=== PATIENT | female | born 1965 | race Caucasian/White ===

== ENCOUNTER 2023-09-22 19:43 | Inpatient (IN) | payer OTHER, SELFPAY ==
[~2023-09-22 19:43] MED LIST: Iopamidol 300 61% 100 ML VIAL FS ONE
[2023-09-22 21:20] LABS: #Basophils 0.04 10x3/uL (0.0-0.2); #Eosinphils 0.03 10x3/uL (0.0-0.5); #Monocytes 1.05 10x3/uL (0.0-1.1); #Neutrophils 15.81 10x3/uL (1.5-8.4); %Basophils 0.2 % (0.0-2.0); %Eosinophils 0.2 % (0.0-6.0); %Lymphocytes 5.7 % (18.0-47.0); %Monocytes 5.8 % (0.0-10.0); %Neutrophils 87.3 % (40.0-75.0); Hematocrit 46.1 % (34.9-44.5); Hemoglobin 16.5 g/dL (12.0-15.5); Mean Corpuscular HGB CONC 35.8 g/dL (32.0-36.0); Mean Corpuscular Hemoglobin 32.3 pg (27.0-33.0); Mean Corpuscular Volume 90.2 fL (81.6-98.3); Mean Platelet Volume 8.8 fL (7.4-10.4); Platelet Count 257 10x3/uL (150-450); RBC Distribution Width 12.1 % (11.5-14.5); Red Blood Cell (RBC) Count 5.11 10x6/uL (3.90-5.03)
[2023-09-22 21:32] LABS: ALT (SGPT) 11 U/L (8-55); AST (SGOT) 17 U/L (5-34); Albumin 3.5 g/dL (3.5-5.0); Alkaline Phosphatase 78 U/L (40-110); Anion Gap 16 mmol/L (10-20); BUN (Urea Nitrogen) 8 mg/dL (9.8-20.1); Bilirubin, Total 1.1 mg/dL (0.2-1.2); Calc. Creatinine Clearance 0 mL/min (70-130); Calcium 9.7 mg/dL (7.8-10.44); Carbon Dioxide 20 mmol/L (22-29); Chloride 101 mmol/L (98-107); Estimated GFR 68; Globulin 3.9 g/dL (2.4-3.5); Glucose 115 mg/dL (70-105); Lipase 20 U/L (8-78); Protein, Total 7.4 g/dL (6.0-8.3); Sodium 133 mmol/L (136-145)
[2023-09-22] MEDS ORDERED: Ondansetron PF 4 MG/2 ML Vial ONE (21:32)
[2023-09-22] MEDS ORDERED: Morphine 4 MG/ML VIAL ONE (21:32)
[2023-09-22] MEDS ORDERED: Piperacillin/Tazobactam 4.5 GM VIAL ONE (22:14)
[2023-09-22 22:21] LABS: White Blood Cell (WBC) Count 18.1 10x3/uL (3.5-10.5)
[2023-09-22] MEDS ORDERED: Ondansetron PF 4 MG/2 ML Vial IVP PRN (22:29)
[2023-09-22] MEDS ORDERED: Morphine 4 MG/ML VIAL SLOW IVP PRN (22:29)
[2023-09-22] MEDS ORDERED: traMADol HCl 50 MG TAB PO PRN (22:29)
[2023-09-22] MEDS ORDERED: Ondansetron ODT 4 MG TAB PO PRN (22:29)
[2023-09-22 22:58] LABS: Bilirubin Neg (Negative); Blood, Urine Negative (Negative); Clarity Clear (Clear); Glucose, Urine (Dipstick) Normal (Negative); Ketone, Urine Negative (Negative); Leukocyte 100 (Negative); Nitrite Negative (Negative); Protein, Urine (Dipstick) Negative (Neg-Trace); Specific Gravity, Urine 1.005 (1.005-1.030); Urobilinogen Normal mg/dL (Less than 2)
[2023-09-22 23:06] LABS: CAUTI Indications for Culture Pelvic or flank pain; RBC/HPF None Seen HPF (0-3)
[2023-09-22 23:07] LABS: Bacteria/HPF None Seen HPF (None Seen); Squamous Epithelial 0-3 HPF (0-3); Urine Culture Reflex No No
[2023-09-23 02:20] VITALS: BMI 29.1
[2023-09-23] MEDS: Ketorolac Tromethamine 30 MG (1 mL) VIAL IVP SCH ×3 (02:51→15:00)
[2023-09-23] MEDS: Sodium Chloride 0.9% 1,000 ML IV SCH (02:51)
[2023-09-23] MEDS: Scopolamine 1 mg/72 hour Patch TD SCH (02:53)
[2023-09-23] MEDS: Piperacillin/Tazobactam 3.375 GM in Sodium Chloride 0.9% 100 ML IVPB SCH ×2 (05:38→15:00)
[2023-09-23] MEDS ORDERED: Bupivacaine PF 0.5% 30 ML VIAL ONE (08:19)
[2023-09-23] MEDS ORDERED: EPINEPHrine 1 MG/ML VIAL ONE (08:19)
[2023-09-23] MEDS: Acetaminophen 500 MG TAB PO SCH (08:51)
[2023-09-23] MEDS: Famotidine 20 MG TAB PO SCH (08:52)
[2023-09-23] MEDS ORDERED: Fentanyl 250 MCG/5 ML VIAL ONE (09:35)
[2023-09-23] MEDS ORDERED: PROPOFOL 20 ML ONE (09:36)
[2023-09-23] MEDS ORDERED: Ibuprofen 600 MG TAB PO PRN (09:47)
[2023-09-23] MEDS ORDERED: ePHEDrine Sulfate 50 MG/10 ML VIAL ONE (09:57)
[2023-09-23] MEDS ORDERED: Midazolam HCl 2 mg/2 ml Vial ONE (10:01)
[2023-09-23] MEDS ORDERED: Sevoflurane 250 ML INH ANEST BOTTLE ONE (10:06)
[2023-09-23] MEDS ORDERED: Dexamethasone 4 mg/ml Vial ONE (10:24)
[2023-09-23] MEDS ORDERED: Ondansetron PF 4 MG/2 ML Vial ONE (10:24)
[2023-09-23] MEDS ORDERED: Glycopyrrolate 0.2 MG/ML 5 ML SYRINGE ONE (10:24)
[2023-09-23] MEDS ORDERED: Morphine 4 MG/ML VIAL SLOW IVP PRN (10:48)
[2023-09-23] MEDS ORDERED: Ondansetron ODT 4 MG TAB PO PRN (10:55)
[2023-09-23] MEDS: NS 0.9% w/ 20 MEQ KCL 1,000 ML IV SCH (12:00)
[2023-09-23] MEDS: Enoxaparin 40 MG (0.4 mL) SYRINGE SC SCH (21:24)
[2023-09-24] MEDS ORDERED: Ibuprofen 200 MG TAB PO PRN (06:06)
[2023-09-24 08:44] VITALS: BP 94/52; TEMP 98.7
[2023-09-24] MEDS: Amoxicillin/Potassium Clav 500 MG TAB PO SCH (09:19)
== END 2023-09-24 09:52 | disposition home or self-care (01) | DRG 399 ==
LOC: CSHERS 19:43 → CSHTELE 22:29 → OBSVTOIN 22:30 → CSHTELE 09-23 00:09 → UNDOADMOB 09-23 00:09
PROVIDERS: ADMIT Specialist; ATTEND Specialist
PROC: 0DTJ4ZZ Resection of Appendix, Percutaneous Endoscopic Approach (ICD-10-PCS; principal; 2023-09-23)
PROC: 3E033XZ Introduction of Vasopressor into Peripheral Vein, Percutaneous Approach (ICD-10-PCS; 2023-09-23)
DX: K35.33 Acute appendicitis with perforation, localized peritonitis, and gangrene, with abscess (principal); Z90.710 Acquired absence of both cervix and uterus; Z98.890 Other specified postprocedural states; Z79.899 Other long term (current) drug therapy
CPT/HCPCS: 36415; 71045; 74177; 80053; 81001; 83605; 83690; 85025; 87040; 87076; 87149; 88304; 94760; 96374; 96375; A4649; A6258; J0171; J0665; J1100; J1650; J1885; J2250; J2270; J2405; J2543; J2704; J3010; J3480; J3490; J7050; Q9967